=== PATIENT | male | born 1955 | race Caucasian/White ===

== ENCOUNTER 2021-01-09 14:19 | Inpatient (IN) | payer OTHER ==
[~2021-01-09] VITALS: Ht 185.4 cm; Wt 106.0 kg
[2021-01-09] MEDS ORDERED: HYDROmorphone 1 MG/ML, 1ML INJ ONE ×4 (15:22→20:38)
[2021-01-09] MEDS ORDERED: ONDANSETRON 2MG/ML, 2ML ONE (15:22)
[2021-01-09] MEDS: HYDROmorphone 1 MG/ML, 1ML INJ IVPush PRN ×2 (15:26→16:24)
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
[2021-01-09] MEDS ORDERED: ONDANSETRON 2MG/ML, 2ML IVPush ONE (16:00)
[2021-01-09] MEDS ORDERED: SODIUM CHLORIDE FLUSH 10ML SYR IVF ONE (16:00)
[2021-01-09] MEDS ORDERED: NEOSPORIN OINT. PKT 1 PACKET ONE (17:05)
--- NOTE | 2021-01-09 17:46 | NUR ---
PT RESTING IN [facility]. MEDICATED PER NOV. ABRASIONS CLEANED
[2021-01-09 17:53] LABS: BASOPHILS % (AUTO) 0 % (0-1); EOSINOPHILS % (AUTO) 0 % (1-7); LYMPHOCYTES % (AUTO) 8 % (22-44); MEAN CORPUSCULAR HEMOGLOBIN 33.3 pg (27.5-34.5); MEAN PLATELET VOLUME 8.6 fL (7.4-10.4); MONOCYTES % (AUTO) 8 % (2-9); NEUTROPHILS % (AUTO) 84 % (42-75); PLATELET COUNT 233 x10^3/uL (130-400); RED BLOOD COUNT 4.34 x10^6/uL (4.38-5.82); RED CELL DISTRIBUTION WIDTH 13.3 % (9.4-14.8)
[2021-01-09 17:59] LABS: ALBUMIN 4.1 g/dL (3.4-5.0); ANION GAP 8 mmol/L (5-15); CALCIUM 8.8 mg/dL (8.5-10.1); CHLORIDE 111 mmol/L (98-107); CREATININE 0.96 mg/dL (0.7-1.3); INTERNATIONAL NORMALIZED RATIO 1.14 (0.93-1.1); PROTHROMBIN TIME 12.2 Seconds (9.6-11.5)
[2021-01-09 18:10] LABS: MD SCAN
[2021-01-09] MEDS ORDERED: OMNIPAQUE 350 MG/ML, 100ML BOTTLE ONE (18:45)
[2021-01-09] MEDS ORDERED: HYDROmorphone 1 MG/ML, 1ML INJ IV ONE (19:00)
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
[2021-01-09] MEDS ORDERED: D5%-0.45% NACL 1,000 ML IV ONE (20:30)
[2021-01-09] MEDS ORDERED: HYDROmorphone 1 MG/ML, 1ML INJ IVPush PRN (20:30)
[2021-01-09] MEDS ORDERED: ONDANSETRON 2MG/ML, 2ML IVPush PRN (20:30)
[2021-01-09] MEDS ORDERED: OXYcodone IR 5MG TABLET ONE (22:29)
[2021-01-09] MEDS ORDERED: OXYcodone IR 5MG TABLET PO PRN (22:30)
[2021-01-10 02:32] VITALS: BP 137/87
[2021-01-10] MEDS: OXYcodone IR 5MG TABLET PO PRN ×3 (02:58→09:17)
[2021-01-10] MEDS: HYDROmorphone 1 MG/ML, 1ML INJ IVPush PRN ×2 (03:08→03:43)
[2021-01-10 05:40] LABS: BASOPHILS % (AUTO) 0 % (0-1); EOSINOPHILS % (AUTO) 0 % (1-7); LYMPHOCYTES % (AUTO) 9 % (22-44); MEAN CORPUSCULAR HEMOGLOBIN 33.2 pg (27.5-34.5); MEAN CORPUSCULAR HGB CONC 34.4 g/dL (33.2-36.2); MEAN PLATELET VOLUME 8.8 fL (7.4-10.4); MONOCYTES % (AUTO) 12 % (2-9); NEUTROPHILS % (AUTO) 79 % (42-75); PLATELET COUNT 219 x10^3/uL (130-400); RED BLOOD COUNT 4.11 x10^6/uL (4.38-5.82); RED CELL DISTRIBUTION WIDTH 13.1 % (9.4-14.8)
[2021-01-10 05:41] LABS: MD NO
[2021-01-10 07:14] VITALS: BP 145/78
[2021-01-10] MEDS: OMEPRAZOLE 20 MG CAPSULE.DR PO SCH (08:09)
[2021-01-10] MEDS ORDERED: ENOXAPARIN 40 MG/0.4 ML SQ SCH (10:00)
[2021-01-10] MEDS ORDERED: ROSU40TA PO (12:14)
[2021-01-10] MEDS ORDERED: LOSA100T2 PO (12:17)
[2021-01-10] MEDS ORDERED: AMLO10TA4 PO (12:18)
[2021-01-10] MEDS ORDERED: ATEN25TA PO (12:18)
[2021-01-10] MEDS ORDERED: EZET10TA70 PO (12:19)
[2021-01-10] MEDS ORDERED: ASPI81TA45 PO (12:20)
[2021-01-10 13:45] VITALS: BP 120/72
[2021-01-10] MEDS ORDERED: ONDANSETRON 2MG/ML, 2ML IVPush PRN (15:30)
[2021-01-10] MEDS: HYDROcodone/APAP 5/325 TABLET PO PRN ×2 (16:57→21:02)
[2021-01-10] MEDS: ATENOLOL 25 MG TABLET PO SCH ×2 (18:00→20:00)
[2021-01-10 18:15] VITALS: BP 109/52
[2021-01-10 19:58] VITALS: BP 111/68
[2021-01-10] MEDS: AMLODIPINE 10 MG TAB PO SCH (20:00)
[2021-01-10] MEDS: CRESTOR 40 MG HOMEMEDPO SCH (20:00)
[2021-01-10] MEDS ORDERED: ATORVASTATIN 80 MG TABLET PO SCH (21:00)
[2021-01-11 00:40] VITALS: BP 109/65
[2021-01-11] MEDS: HYDROcodone/APAP 5/325 TABLET PO PRN ×3 (01:13→20:53)
[2021-01-11 05:17] LABS: BASOPHILS % (AUTO) 1 % (0-1); EOSINOPHILS % (AUTO) 0 % (1-7); LYMPHOCYTES % (AUTO) 15 % (22-44); MEAN CORPUSCULAR HEMOGLOBIN 33.4 pg (27.5-34.5); MEAN CORPUSCULAR HGB CONC 34.1 g/dL (33.2-36.2); MEAN PLATELET VOLUME 8.4 fL (7.4-10.4); MONOCYTES % (AUTO) 16 % (2-9); NEUTROPHILS % (AUTO) 68 % (42-75); PLATELET COUNT 175 x10^3/uL (130-400); RED BLOOD COUNT 3.69 x10^6/uL (4.38-5.82); RED CELL DISTRIBUTION WIDTH 13.4 % (9.4-14.8)
[2021-01-11] MEDS: OMEPRAZOLE 20 MG CAPSULE.DR PO SCH (06:00)
[2021-01-11] MEDS ORDERED: HYDROmorphone 1 MG/ML, 1ML INJ IV ONE (06:00)
[2021-01-11] MEDS: ATENOLOL 25 MG TABLET PO SCH ×2 (06:00→18:00)
[2021-01-11 06:05] LABS: MD SCAN
[2021-01-11] MEDS ORDERED: MIDAZOLAM 1 MG/ML, 2ML ONE (07:13)
[2021-01-11] MEDS ORDERED: PROPOFOL 50 ML ONE (07:13)
[2021-01-11] MEDS ORDERED: FENTANYL PF 250 MCG/5ML ONE (07:14)
[2021-01-11] MEDS ORDERED: PROPOFOL 10 MG/ML, 20ML ONE (07:43)
[2021-01-11] MEDS ORDERED: EPINEPHRINE 1 MG/ML, 1ML ONE (08:31)
[2021-01-11] MEDS ORDERED: BUPIVACAINE/PF 0.5% ONE (08:31)
[2021-01-11] MEDS ORDERED: DIPHENHYDRAMINE 50 MG/ML, 1ML IVPush PRN (09:00)
[2021-01-11] MEDS ORDERED: ONDANSETRON 2MG/ML, 2ML IVPush PRN (09:00)
[2021-01-11] MEDS ORDERED: FENTANYL PF 100 MCG/2ML IV PRN (09:00)
[2021-01-11] MEDS: EZETIMIBE 10 MG TABLET PO SCH (09:00)
[2021-01-11] MEDS ORDERED: EPHEDRINE 50 MG/ML, 1ML IM PRN (09:00)
[2021-01-11] MEDS ORDERED: MAALOX/HYOSCYAMINE/LIDOCAINE 45 ML BTL PO PRN (09:00)
[2021-01-11] MEDS ORDERED: HYDROcodone/APAP 7.5-325MG/15ML UDC PO PRN (09:00)
[2021-01-11] MEDS ORDERED: LOSARTAN 50MG TABLET PO SCH (09:00)
[2021-01-11] MEDS ORDERED: PROMETHAZINE 25 MG/ML, 1ML IVPush PRN (09:00)
[2021-01-11] MEDS ORDERED: DIAZEPAM 5 MG/ML, 2ML IVPush PRN (09:00)
[2021-01-11] MEDS ORDERED: MEPERIDINE/PF 25MG/0.5ML IVPush PRN (09:00)
[2021-01-11] MEDS ORDERED: HYDROmorphone 1 MG/ML, 1ML INJ IVPush PRN (09:00)
[2021-01-11] MEDS ORDERED: FENTANYL PF 100 MCG/2ML ONE (09:40)
[2021-01-11] MEDS ORDERED: HYDROcodone/APAP 7.5-325MG/15ML UDC ONE (09:40)
[2021-01-11 12:07] VITALS: BP 112/70
[2021-01-11] MEDS: CEFAZOLIN PMX 1GM/50ML 50 ML IV SCH ×2 (15:36→23:28)
[2021-01-11 19:57] VITALS: BP 112/70
[2021-01-11] MEDS: AMLODIPINE 10 MG TAB PO SCH (20:53)
[2021-01-11] MEDS: CRESTOR 40 MG HOMEMEDPO SCH (20:54)
[2021-01-12 00:08] VITALS: BP 114/67
[2021-01-12 03:38] VITALS: BP 124/77
[2021-01-12] MEDS: HYDROcodone/APAP 5/325 TABLET PO PRN ×3 (04:13→13:30)
[2021-01-12 05:46] LABS: BASOPHILS % (AUTO) 0 % (0-1); EOSINOPHILS % (AUTO) 1 % (1-7); LYMPHOCYTES % (AUTO) 16 % (22-44); MEAN CORPUSCULAR HEMOGLOBIN 33.8 pg (27.5-34.5); MEAN CORPUSCULAR HGB CONC 34.7 g/dL (33.2-36.2); MEAN PLATELET VOLUME 8.5 fL (7.4-10.4); MONOCYTES % (AUTO) 15 % (2-9); NEUTROPHILS % (AUTO) 69 % (42-75); PLATELET COUNT 162 x10^3/uL (130-400); RED BLOOD COUNT 3.32 x10^6/uL (4.38-5.82); RED CELL DISTRIBUTION WIDTH 12.8 % (9.4-14.8)
[2021-01-12 05:53] LABS: MD NO
[2021-01-12] MEDS: OMEPRAZOLE 20 MG CAPSULE.DR PO SCH (06:20)
[2021-01-12] MEDS: ATENOLOL 25 MG TABLET PO SCH (06:20)
[2021-01-12] MEDS ORDERED: ENOXAPARIN 40 MG/0.4 ML SQ SCH (07:00)
[2021-01-12 07:16] VITALS: BP 108/64
[2021-01-12] MEDS: EZETIMIBE 10 MG TABLET PO SCH (08:57)
[2021-01-12] MEDS ORDERED: MAALOX/HYOSCYAMINE/LIDOCAINE 45 ML BTL PO PRN (12:00)
[2021-01-12 14:12] VITALS: BP 96/59
[2021-01-12] MEDS ORDERED: HYDR-2214 PO (14:51)
[2021-01-12] MEDS ORDERED: HYDROCODONE PO (15:27)
[2021-01-12] MEDS ORDERED: HYDROcodone/APAP 5/325 TABLET PO PRN (15:30)
== END 2021-01-12 16:45 | disposition home or self-care (01) | DRG 515 ==
LOC: ED 17:11 → 4NE 20:27 → DCLOUNGE 01-12 16:30
PROVIDERS: ADMIT Orthopaedic Surgery; ATTEND Orthopaedic Surgery
PROC: 0QH534Z Insertion of Internal Fixation Device into Left Acetabulum, Percutaneous Approach (ICD-10-PCS; principal; 2021-01-11 07:30)
DX: M16.12 Unilateral primary osteoarthritis, left hip (principal); S32.432A Displaced fracture of anterior column [iliopubic] of left acetabulum, initial encounter for closed fracture; Z20.822 Contact with and (suspected) exposure to COVID-19; I10 Essential (primary) hypertension; E78.00 Pure hypercholesterolemia, unspecified; S50.312A Abrasion of left elbow, initial encounter; S80.212A Abrasion, left knee, initial encounter; Y92.410 Unspecified street and highway as the place of occurrence of the external cause; Y93.55 Activity, bike riding; Y99.8 Other external cause status; V18.4XXA Pedal cycle driver injured in noncollision transport accident in traffic accident, initial encounter; I25.2 Old myocardial infarction; Z79.899 Other long term (current) drug therapy
CPT/HCPCS: 36415; 72190; 73501; 73502; 73552; 76000; 96374; 96375; 96376; 99285; S0020; 71045; 72193; 80048; 82040; 85025; 85610; 87635; 93005; C1713; G0378; J0171; J0690; J1170; J1650; J2250; J2405; J2704; J3010; Q9967; Q0161